=== PATIENT | female | born 1960 | race African-American/Black ===

== ENCOUNTER 2017-10-13 06:32 | Day surgery (SDC) | payer MEDICAID ==
[~2017-10-13] VITALS: Ht 149.9 cm; Wt 57.2 kg
[~2017-10-13 06:32] MED LIST: ALPHAGAN 0.1% BOTHEYE; AMLO5TAB88 PO; DIVAL250 PO; FOLI-43 PO; LACO200T2 PO; NAP5EC PO; NEO/3.5O18 LEFTEYE; PHEN100C4 PO; PRED5DRO7 BOTHEYE
[2017-10-13] MEDS ORDERED: BALANCED SALT IRRIG SOLN COMB1 500ML OP SCH (08:00)
[2017-10-13] MEDS ORDERED: LACTATED RINGERS 1,000 ML IV SCH (08:20)
[2017-10-13] MEDS ORDERED: FENTANYL CITRATE/PF 50MCG/ML 2ML VIAL ONE (08:59)
[2017-10-13] MEDS ORDERED: MIDAZOLAM HCL 2 MG/2 ML VIAL ONE (09:23)
[2017-10-13] MEDS ORDERED: HYALURONATE SODIUM 14 MG/ML 0.85ML SYRINGE IO ONE ×2 (09:33→09:43)
[2017-10-13] MEDS ORDERED: PROPOFOL 200MG/20ML VIAL IV ONE (09:41)
[2017-10-13] MEDS ORDERED: PREDNISOLONE ACETATE 1% OPHTH DROPS 1ML ONE (10:02)
[2017-10-13] MEDS ORDERED: CIPROFLOXACIN 0.3% OPHTH SOLN 2.5ML ONE (10:02)
[2017-10-13] MEDS ORDERED: BUPIVACAINE HCL/PF 0.75% (7.5MG/ML) 10ML ONE (10:02)
[2017-10-13] MEDS ORDERED: LIDOCAINE HCL/PF 2% 20 MG/ML 10ML VIAL ONE (10:02)
[2017-10-13] MEDS ORDERED: NEO/POLYMYX B SULF/DEXAMETH OPHTH OINT 3.5GM ONE (10:02)
[2017-10-13] MEDS ORDERED: BALANCED SALT IRRIG SOLN 15ML ONE (10:02)
[2017-10-13] MEDS ORDERED: TETRACAINE 0.5% OPHTH DROPS 4ML ONE (10:02)
[2017-10-13] MEDS: MEPERIDINE HCL/PF 25MG/ML CPJ IV PRN ×2 (10:27→11:15)
[2017-10-13 11:15] VITALS: BP 133/86
== END 2017-10-13 13:00 | disposition home or self-care (01) ==
LOC: OR 06:32
PROVIDERS: ATTEND Ophthalmology
DX: Q13.2 Other congenital malformations of iris (principal); Z94.7 Corneal transplant status; I10 Essential (primary) hypertension; G40.802 Other epilepsy, not intractable, without status epilepticus; G43.909 Migraine, unspecified, not intractable, without status migrainosus; Z88.0 Allergy status to penicillin; Z86.73 Personal history of transient ischemic attack (TIA), and cerebral infarction without residual deficits; Z90.710 Acquired absence of both cervix and uterus
CPT/HCPCS: 65870; 66762; 67005; J2175; J2250; J3010; J3490; J2704; J7120

== ENCOUNTER 2018-03-16 05:46 | Day surgery (SDC) | payer MEDICAID ==
[~2018-03-16] VITALS: Ht 149.9 cm; Wt 57.6 kg
[~2018-03-16 05:46] MED LIST changes: -ALPHAGAN 0.1% BOTHEYE; +BRIV50TA PO; -LACO200T2 PO; +LACTATED RINGERS 1,000 ML IV SCH; +METH50TA5 PO; -NAP5EC PO; -NEO/3.5O18 LEFTEYE
[2018-03-16] MEDS ORDERED: PHENYLEPHRINE HCL 10% OPHTH DROPS 5ML LEFTEYE ONE (06:00)
[2018-03-16] MEDS ORDERED: CYCLOPENTOLATE HCL 1% OPHTH DROPS 2ML LEFTEYE ONE (06:00)
[2018-03-16] MEDS ORDERED: TROPICAMIDE 1% OPHTH DROPS 15ML LEFTEYE ONE (06:00)
[2018-03-16] MEDS ORDERED: BALANCED SALT IRRIG SOLN COMB1 500ML OP SCH (07:00)
[2018-03-16] MEDS ORDERED: HEPARIN 100 UNITS/1 ML VIAL ONE (07:31)
[2018-03-16] MEDS ORDERED: HYALURONATE SODIUM 14 MG/ML 0.85ML SYRINGE IO ONE (07:32)
[2018-03-16] MEDS ORDERED: MIDAZOLAM HCL 2 MG/2 ML VIAL ONE ×2 (07:49→07:53)
[2018-03-16] MEDS ORDERED: PROPOFOL 200MG/20ML VIAL IV ONE (08:00)
[2018-03-16] MEDS ORDERED: LIDOCAINE HCL/PF 1% 10 MG/ML 5ML VIAL ONE (08:00)
[2018-03-16] MEDS ORDERED: SUCCINYLCHOLINE CHLORIDE 200MG/10ML VIAL IV ONE (08:00)
[2018-03-16] MEDS ORDERED: SODIUM CHLORIDE 0.9% 1,000 ML IV ONE (08:22)
[2018-03-16] MEDS ORDERED: ONDANSETRON HCL 4MG/2ML VIAL IV PRN (08:30)
[2018-03-16] MEDS ORDERED: MORPHINE SULFATE 4 MG/ML CPJ (NOT FOR IM USE) IV PRN (08:30)
[2018-03-16 08:43] VITALS: BP 155/89
[2018-03-16] MEDS ORDERED: PREDNISOLONE ACETATE 1% OPHTH DROPS 1ML ONE (14:38)
[2018-03-16] MEDS ORDERED: CYCLOPENTOLATE HCL 1% OPHTH DROPS 2ML ONE (14:38)
[2018-03-16] MEDS ORDERED: BALANCED SALT IRRIG SOLN 15ML ONE (14:38)
[2018-03-16] MEDS ORDERED: NEO/POLYMYX B SULF/DEXAMETH OPHTH OINT 3.5GM ONE (14:38)
[2018-03-16] MEDS ORDERED: BUPIVACAINE HCL/PF 0.75% (7.5MG/ML) 10ML ONE (14:38)
[2018-03-16] MEDS ORDERED: TROPICAMIDE 1% OPHTH DROPS 15ML ONE (14:38)
[2018-03-16] MEDS ORDERED: LIDOCAINE HCL 2%/EPINEPHRINE 1:100,000 20 ML VIAL INFIL ONE (14:38)
[2018-03-16] MEDS ORDERED: LIDOCAINE HCL/PF 2% 20 MG/ML 10ML VIAL ONE (14:38)
[2018-03-16] MEDS ORDERED: TETRACAINE 0.5% OPHTH DROPS 4ML ONE (14:38)
[2018-03-16] MEDS ORDERED: PHENYLEPHRINE HCL 10% OPHTH DROPS 5ML ONE (14:38)
== END 2018-03-16 10:00 | disposition home or self-care (01) ==
LOC: OR 05:46
PROVIDERS: ATTEND Ophthalmology
DX: T85.22XA Displacement of intraocular lens, initial encounter (principal); Y83.9 Surgical procedure, unspecified as the cause of abnormal reaction of the patient, or of later complication, without mention of misadventure at the time of the procedure; I10 Essential (primary) hypertension; G89.29 Other chronic pain; G43.909 Migraine, unspecified, not intractable, without status migrainosus; Z94.7 Corneal transplant status; Z79.899 Other long term (current) drug therapy; Z90.710 Acquired absence of both cervix and uterus; Z88.0 Allergy status to penicillin
CPT/HCPCS: 66999; J0330; J2250; J2270; J3490; J7120; J1642; J2704

== ENCOUNTER → 2020-04-13 | Outpatient (CLI) | payer MEDICAID ==
[~2020-04-13] MED LIST changes: -LACTATED RINGERS 1,000 ML IV SCH; +NAP5EC PO
== END | disposition home or self-care (01) ==
LOC: LAB 10:41
PROVIDERS: ATTEND Ophthalmology
DX: Z01.818 Encounter for other preprocedural examination (principal); Z11.59 Encounter for screening for other viral diseases
CPT/HCPCS: C9803; U0003

== ENCOUNTER 2020-04-17 09:08 | Day surgery (SDC) | payer MEDICAID ==
[~2020-04-17] VITALS: Ht 152.4 cm; Wt 66.2 kg
[~2020-04-17 09:08] MED LIST changes: -PHEN100C4 PO
[2020-04-17] MEDS ORDERED: PHENYLEPHRINE HCL 10% OPHTH DROPS 5ML LEFTEYE SCH (09:30)
[2020-04-17] MEDS ORDERED: LACTATED RINGERS 1,000 ML IV SCH (09:30)
[2020-04-17] MEDS ORDERED: CYCLOPENTOLATE HCL 1% OPHTH DROPS 2ML LEFTEYE SCH (09:30)
[2020-04-17] MEDS ORDERED: TROPICAMIDE 1% OPHTH DROPS 15ML LEFTEYE SCH (09:30)
[2020-04-17] MEDS ORDERED: TETRACAINE 0.5% OPHTH DROPS 4ML ONE (10:07)
[2020-04-17] MEDS ORDERED: CYCLOPENTOLATE HCL 1% OPHTH DROPS 2ML ONE (10:07)
[2020-04-17] MEDS ORDERED: LIDOCAINE HCL 2%/EPINEPHRINE 1:100,000 20 ML VIAL INFIL ONE (10:07)
[2020-04-17] MEDS ORDERED: BALANCED SALT IRRIG SOLN 15ML ONE (10:07)
[2020-04-17] MEDS ORDERED: LIDOCAINE HCL/PF 2% 20 MG/ML 10ML VIAL ONE (10:07)
[2020-04-17] MEDS ORDERED: PREDNISOLONE ACETATE 1% OPHTH DROPS 5ML ONE (10:07)
[2020-04-17] MEDS ORDERED: NEO/POLYMYX B SULF/DEXAMETH OPHTH OINT 3.5GM ONE (10:07)
[2020-04-17] MEDS ORDERED: BUPIVACAINE HCL/PF 0.75% (7.5MG/ML) 10ML ONE (10:07)
[2020-04-17] MEDS ORDERED: LIDOCAINE HCL/PF 1% 10 MG/ML 5ML VIAL ONE ×2 (12:43→13:55)
[2020-04-17] MEDS ORDERED: MIDAZOLAM HCL 2 MG/2 ML VIAL ONE (12:59)
[2020-04-17] MEDS ORDERED: PROPOFOL 200MG/20ML VIAL IV ONE (13:04)
[2020-04-17] MEDS ORDERED: HYALURONATE SODIUM 10 MG/ML 0.55ML SYRINGE IO ONE (13:13)
[2020-04-17] MEDS ORDERED: KETOROLAC 30MG/ML VIAL ONE (13:52)
[2020-04-17] MEDS ORDERED: FENTANYL CITRATE/PF 50MCG/ML 2ML VIAL ONE (13:53)
== END 2020-04-17 16:00 | disposition home or self-care (01) ==
LOC: OR 09:08
PROVIDERS: ATTEND Ophthalmology
DX: H40.89 Other specified glaucoma (principal); I10 Essential (primary) hypertension; E78.00 Pure hypercholesterolemia, unspecified; Z79.899 Other long term (current) drug therapy; Z98.890 Other specified postprocedural states; Z87.891 Personal history of nicotine dependence
CPT/HCPCS: 66179; J1885; J2250; J2704; J3010; J3490

== ENCOUNTER → 2023-07-24 | Day surgery (SDC) | payer BC, MEDICAID ==
[~2023-07-24] VITALS: Ht 152.4 cm; Wt 61.7 kg
[~2023-07-24] MED LIST changes: +ACET-2708 PO; +ACETAMINOPHEN 500MG TABLET ONE; +ACETAMINOPHEN 500MG TABLET PO NR; +ACETAZOLAMIDE SODIUM 500MG/VIAL IV NR; +ACETAZOLAMIDE SODIUM 500MG/VIAL IV ONE; +AMLO10TA80 PO; -AMLO5TAB88 PO; +BALANCED SALT IRRIG SOLN COMB1 500ML OP ONE; +BRIN8DRO LEFTEYE; +BRIV100T PO; -BRIV50TA PO; +BUPIVACAINE HCL/PF 0.5% (5MG/ML) 10ML ONE; +CARB15DR2 LEFTEYE; +CLINDAMYCIN 600 MG in DEXTROSE 5% WATER 50 ML IV NR; +CLINDAMYCIN 900 MG in DEXTROSE 5% WATER 50 ML IV NR; +CYCLOPENTOLATE HCL 1% OPHTH DROPS 2ML LEFTEYE NR; -DIVAL250 PO; +DORZ10DR8 LEFTEYE; +FENTANYL CITRATE/PF 50MCG/ML 2ML VIAL ONE; -FOLI-43 PO; +GLYCOPYRROLATE 0.2 MG/ML 2ML VIAL ONE; +HYALURONATE SODIUM 10 MG/ML 0.55ML SYRINGE IO ONE; +HYDROMORPHONE HCL/PF 2MG/ML CPJ IV PRN; +LABETALOL 5MG/ML SYR 20 MG/4 ML SYRINGE IV PRN; +LACTATED RINGERS 1,000 ML IV SCH; +LATA2.5D14 LEFTEYE; +MEPERIDINE HCL/PF 25MG/ML CPJ IV PRN; -METH50TA5 PO; +MIDAZOLAM HCL 2 MG/2 ML VIAL ONE; -NAP5EC PO; +NEOSTIGMINE METHYLSULFATE 1MG/ML 10 ML VIAL ONE; +ONDANSETRON HCL 4MG/2ML INJ IV PRN; +PHENYLEPHRINE HCL 10% OPHTH DROPS 5ML LEFTEYE NR; +PILO2O LEFTEYE; -PRED5DRO7 BOTHEYE; +PROPOFOL 200MG/20ML VIAL IV ONE; +ROCURONIUM BROMIDE 10MG/ML VIAL 5ML IV ONE; +TAFL1DRO12 LEFTEYE; +TROPICAMIDE 1% OPHTH DROPS 15ML LEFTEYE NR; +TRYPAN BLUE 0.5 ML DISP.SYRIN IO ONE; +VANCOMYCIN HCL 1 GM/VIAL ONE
== END | disposition home or self-care (01) ==
LOC: OR 08:40
PROVIDERS: ATTEND Ophthalmology
DX: H40.89 Other specified glaucoma (principal); H27.132 Posterior dislocation of lens, left eye; I10 Essential (primary) hypertension; E78.00 Pure hypercholesterolemia, unspecified; Z79.899 Other long term (current) drug therapy; Z98.890 Other specified postprocedural states; Z87.891 Personal history of nicotine dependence; Z88.0 Allergy status to penicillin; Z90.710 Acquired absence of both cervix and uterus
CPT/HCPCS: 66170; 67121; J2710; J3010; J3490 ×4; J2250; J2704; J1120; J7060; J3370; Q9957

== ENCOUNTER → 2024-08-09 | Day surgery (SDC) | payer MEDICAID ==
[~2024-08-09] VITALS: Ht 152.4 cm; Wt 64.9 kg
[~2024-08-09] MED LIST changes: -ACET-2708 PO; +ACET500C47 PO; -ACETAMINOPHEN 500MG TABLET ONE; -ACETAMINOPHEN 500MG TABLET PO NR; -ACETAZOLAMIDE SODIUM 500MG/VIAL IV NR; -ACETAZOLAMIDE SODIUM 500MG/VIAL IV ONE; +BALANCED SALT IRRIG SOLN 15ML ONE; +BALANCED SALT IRRIG SOLN COMB2 500ML OP SCH; -BRIN8DRO LEFTEYE; -BUPIVACAINE HCL/PF 0.5% (5MG/ML) 10ML ONE; -CLINDAMYCIN 600 MG in DEXTROSE 5% WATER 50 ML IV NR; -CLINDAMYCIN 900 MG in DEXTROSE 5% WATER 50 ML IV NR; -DORZ10DR8 LEFTEYE; -GLYCOPYRROLATE 0.2 MG/ML 2ML VIAL ONE; -HYALURONATE SODIUM 10 MG/ML 0.55ML SYRINGE IO ONE; +HYALURONATE SODIUM 10MG/ML 0.85ML SYRINGE IO ONE; +HYDROMORPHONE HCL/PF 1MG/ML INJ IV PRN; -HYDROMORPHONE HCL/PF 2MG/ML CPJ IV PRN; +LABETALOL 5MG/ML 4ML INJ IV PRN; -LABETALOL 5MG/ML SYR 20 MG/4 ML SYRINGE IV PRN; -NEOSTIGMINE METHYLSULFATE 1MG/ML 10 ML VIAL ONE; -PILO2O LEFTEYE; +PRED5DRO22 LEFTEYE; -ROCURONIUM BROMIDE 10MG/ML VIAL 5ML IV ONE; -TAFL1DRO12 LEFTEYE; -TRYPAN BLUE 0.5 ML DISP.SYRIN IO ONE; -VANCOMYCIN HCL 1 GM/VIAL ONE
== END | disposition home or self-care (01) ==
LOC: OR 05:24
PROVIDERS: ATTEND Ophthalmology
DX: H27.02 Aphakia, left eye (principal); I10 Essential (primary) hypertension; Z79.899 Other long term (current) drug therapy; Z98.890 Other specified postprocedural states
CPT/HCPCS: 66985; 93005; J3010; J3490 ×2; J2250; J2704; V2632